=== PATIENT | female | born 1945 | race Caucasian/White ===

== ENCOUNTER 2019-08-15 13:33 | Inpatient (IN) | payer MEDICARE ==
[~2019-08-15] VITALS: Ht 162.6 cm; Wt 110.0 kg
[2019-08-15 15:03] LABS: BASOPHILS # (AUTO) 0.1 X10'3 (0-0.2); BASOPHILS % (AUTO) 0.7 % (0-1); EOSINOPHILS # (AUTO) 0.1 X10'3 (0-0.9); HEMATOCRIT 38.8 % (35.0-45.0); HEMOGLOBIN 12.8 g/dl (12.0-16.0); LYMPHOCYTES # (AUTO) 2.4 X10'3 (1.1-4.8); LYMPHOCYTES % (AUTO) 24.6 % (21-51); MEAN CORPUSCULAR HEMOGLOBIN 29.7 PG (27.0-31.0); MEAN CORPUSCULAR HGB CONC 32.9 g/dL (33.0-36.5); MEAN CORPUSCULAR VOLUME 90.1 FL (78-98); MEAN PLATELET VOLUME 11.7 FL (7.4-10.4); MONOCYTES # (AUTO) 0.6 X10'3 (0-0.9); MONOCYTES % (AUTO) 5.8 % (2-12); NEUTROPHILS # (AUTO) 6.6 X10'3 (1.8-7.7); NEUTROPHILS % (AUTO) 67.9 % (42-75); PLATELET COUNT 240 X10'3 (140-440); RED BLOOD COUNT 4.31 X10'6 (4.20-5.60); RED CELL DISTRIBUTION WIDTH 14.2 % (11.5-14.5); WHITE BLOOD COUNT 9.7 X10'3 (4.5-11.0)
[2019-08-15 15:13] LABS: PARTIAL THROMBOPLASTIN TIME 26 SECONDS (22-32)
[2019-08-15 15:15] LABS: ALANINE AMINOTRANSFERASE 21 U/L (12-78); ALBUMIN 3.4 G/DL (3.4-5.0); ALBUMIN/GLOBULIN RATIO 0.9 (1.1-1.5); ALKALINE PHOSPHATASE 70 IU/L (46-116); ANION GAP 5 (8-16); ASPARTATE AMINO TRANSFERASE 13 U/L (10-37); BILIRUBIN,TOTAL 0.2 MG/DL (0.1-1.0); BLOOD UREA NITROGEN 33 MG/DL (7-18); BUN/CREATININE RATIO 21.7 (6.6-38.0); CALCIUM 8.9 MG/DL (8.5-10.1); CHLORIDE 105 MMOL/L (99-107); CREATININE 1.52 MG/DL (0.40-0.90); GLUCOSE 95 MG/DL (70-104); POTASSIUM 4.6 MMOL/L (3.5-5.1); SODIUM 141 MMOL/L (135-145); TOTAL CARBON DIOXIDE 31.3 MMOL/L (24-32); TOTAL PROTEIN 7.1 G/DL (6.4-8.2); eGFR 34 ML/MIN
[2019-08-15] MEDS ORDERED: diltiazem 5mg/ml 5ml inj. IV ONE (15:20)
[2019-08-15 16:20] LABS: LARGE PLATELETS FEW; PLATELET ESTIMATE NORMAL
[2019-08-15] MEDS ORDERED: ATOR40TA72 PO (16:53)
[2019-08-15] MEDS ORDERED: LISI1TAB29 PO (16:53)
[2019-08-15] MEDS ORDERED: OXYB10TA2 PO (16:53)
[2019-08-15] MEDS ORDERED: BIOT10004 PO (16:53)
[2019-08-15] MEDS ORDERED: mag hydrox/Alum hydrox/simeth 30ml oral suspension PO PRN (18:05)
[2019-08-15] MEDS ORDERED: potassium Cl 20 mEq SR tablet PO PRN ×2 (18:05)
[2019-08-15] MEDS ORDERED: docusate sod 100mg capsule PO PRN (18:05)
[2019-08-15] MEDS ORDERED: aminophylline 250mg/10ml inj. IV PRN (18:05)
[2019-08-15] MEDS ORDERED: potassium CL 10mEq/100ml bag 100 ML IV PRN ×2 (18:05)
[2019-08-15] MEDS ORDERED: metoprolol tartrate 1mg/ml inj IV PRN (18:05)
[2019-08-15] MEDS ORDERED: magnesium Cl slow-release 64mg tablet PO PRN (18:05)
[2019-08-15] MEDS ORDERED: acetaminophen 325mg tablet PO PRN ×2 (18:05)
[2019-08-15] MEDS ORDERED: nitroGLYCERIN 0.4mg SUBLingual tab SL PRN (18:05)
[2019-08-15] MEDS ORDERED: magnesium 4gm in 100ml NS 100 ML IV PRN (18:05)
[2019-08-15] MEDS ORDERED: magnesium 2GM in 50ml NS 50 ML IV PRN (18:05)
[2019-08-15] MEDS ORDERED: morphine 2 MG/ML inj. syringe IV PRN (18:05)
[2019-08-15] MEDS ORDERED: regadenoson 0.4mg/5ml syringe IV PRN (18:05)
[2019-08-15] MEDS ORDERED: ondansetron/PF 4mg/2ml inj IV PRN (18:05)
[2019-08-15] MEDS ORDERED: HYDROcodone/acetaminophen 5mg/325mg tablet PO PRN (18:05)
[2019-08-15 18:49] LABS: D-DIMER 0.27 MG/L FEU (0-0.50)
--- NOTE | 2019-08-15 20:00 | NUR ---
Patient transfered from ER to room PCU 3013. I have received report from Deepali SCHUSTER from ER and had the opportunity to ask questions and assume patient care. Came with all her belongings, walked independently to the bed, and able to reposition to comfort in bed. Will continue to monitor.
[2019-08-15 20:30] VITALS: BP 145/77
[2019-08-15] MEDS: normal saline 1000ml 1,000 ML IV SCH (20:39)
[2019-08-15 22:00] VITALS: BP 128/56
--- NOTE | 2019-08-15 22:00 | NUR ---
Patient has voiced concerns about possible new diagnosis of Chronic kidney disease stage 3, PE, and coronary artery disease. Wanting to talk to the doctor more in the AM shift.
[2019-08-15] MEDS: heparin, porcine 5000 units/ml vial SQ SCH (23:13)
[2019-08-16] VITALS (11 sets, daily range): BP systolic 101–156; BP diastolic 49–65
[2019-08-16 03:42] LABS: BASOPHILS # (AUTO) 0.1 X10'3 (0-0.2); BASOPHILS % (AUTO) 1.3 % (0-1); EOSINOPHILS # (AUTO) 0.1 X10'3 (0-0.9); EOSINOPHILS % (AUTO) 1.7 % (0-6); HEMATOCRIT 34.9 % (35.0-45.0); HEMOGLOBIN 11.6 g/dl (12.0-16.0); LYMPHOCYTES # (AUTO) 2.5 X10'3 (1.1-4.8); LYMPHOCYTES % (AUTO) 35.7 % (21-51); MEAN CORPUSCULAR HEMOGLOBIN 29.8 PG (27.0-31.0); MEAN CORPUSCULAR HGB CONC 33.3 g/dL (33.0-36.5); MEAN CORPUSCULAR VOLUME 89.5 FL (78-98); MEAN PLATELET VOLUME 11.6 FL (7.4-10.4); MONOCYTES # (AUTO) 0.4 X10'3 (0-0.9); MONOCYTES % (AUTO) 5.9 % (2-12); NEUTROPHILS # (AUTO) 3.8 X10'3 (1.8-7.7); NEUTROPHILS % (AUTO) 55.4 % (42-75); PLATELET COUNT 182 X10'3 (140-440); RED CELL DISTRIBUTION WIDTH 13.7 % (11.5-14.5); WHITE BLOOD COUNT 6.9 X10'3 (4.5-11.0)
[2019-08-16 04:01] LABS: ALANINE AMINOTRANSFERASE 17 U/L (12-78); ALBUMIN 3.1 G/DL (3.4-5.0); ALBUMIN/GLOBULIN RATIO 0.9 (1.1-1.5); ALKALINE PHOSPHATASE 64 IU/L (46-116); ANION GAP 9 (8-16); ASPARTATE AMINO TRANSFERASE 11 U/L (10-37); BILIRUBIN,TOTAL 0.3 MG/DL (0.1-1.0); BLOOD UREA NITROGEN 29 MG/DL (7-18); BUN/CREATININE RATIO 25.2 (6.6-38.0); CALCIUM 8.2 MG/DL (8.5-10.1); CHLORIDE 108 MMOL/L (99-107); CHOLESTEROL 143 MG/DL (0-200); CREATININE 1.15 MG/DL (0.40-0.90); GLUCOSE 96 MG/DL (70-104); HDL CHOLESTEROL 48 MG/DL (35-60); LDL CHOLESTEROL 79 MG/DL (50-100); MAGNESIUM 1.6 MG/DL (1.5-2.4); POTASSIUM 4.2 MMOL/L (3.5-5.1); SODIUM 144 MMOL/L (135-145); TOTAL CARBON DIOXIDE 27.3 MMOL/L (24-32); TOTAL PROTEIN 6.4 G/DL (6.4-8.2); TRIGLYCERIDES 129 MG/DL (20-135); eGFR 46 ML/MIN
[2019-08-16] MEDS: normal saline 1000ml 1,000 ML IV SCH ×2 (04:01→14:01)
--- NOTE | 2019-08-16 06:43 | NUR ---
Problems reprioritized. Patient report given, questions answered & plan of care reviewed with Nicolás SCHUSTER.
--- NOTE | 2019-08-16 06:43 | NUR ---
Patient in room PCU 3013. I have received report from LANDEN Gutierrez and had the opportunity to ask questions and assume patient care.
[2019-08-16] MEDS: K and/or MAG REPLACEMENT MC SCH (08:00)
[2019-08-16] MEDS: heparin, porcine 5000 units/ml vial SQ SCH ×2 (08:02→20:06)
[2019-08-16] MEDS: pantoprazole 40mg Tablet.DR PO SCH (08:03)
[2019-08-16] MEDS: lisinopril 20mg tablet PO SCH (08:03)
[2019-08-16] MEDS: atorvastatin 20mg tablet PO SCH (08:04)
[2019-08-16] MEDS ORDERED: furosemide 20 MG/2 ML vial IV ONE (14:10)
--- NOTE | 2019-08-16 15:12 | NUR ---
RM [id number] Cynthia Deng: Has voided twice since lasix, she denies any symptoms associated with CHF. Dr Stevens thinks she is fine to go home. Did you want a bladder scan on her or did I hear that wrong? LANDEN Monzon Ext [phone]
--- NOTE | 2019-08-16 16:43 | NUR ---
PAGER ID: [phone] MESSAGE: [id number] Cynthia Deng: Was she possibly getting discharged today? LANDEN Monzon Ext [phone]
--- NOTE | 2019-08-16 18:00 | NUR ---
Patient in room PCU 3013. I have received report from Nicolás SCHUSTER and had the opportunity to ask questions and assume patient care.
--- NOTE | 2019-08-16 18:09 | NUR ---
Problems reprioritized. Patient report given, questions answered & plan of care reviewed with LANDEN Gutierrez.
[2019-08-16] MEDS ORDERED: furosemide 20 MG/2 ML vial IV SCH (20:00)
[2019-08-16] MEDS: nystatin 15 GM powder TP SCH (20:06)
[2019-08-17 02:00] VITALS: BP 113/55
--- NOTE | 2019-08-17 04:00 | NUR ---
END NOC NOTE Patient has slept well tonight, eager to go home in the AM. One concern she had was having all the information for her PCP and anode worker when she leaves the hospital, I assured her she will have all the information will go with her at discharge. Nystatin powder was added tonight for the reddened areas under breasts. Will continue to monitor.
[2019-08-17 06:00] VITALS: BP 132/60
--- NOTE | 2019-08-17 06:58 | NUR ---
Patient in room PCU 3013. I have received report from LANDEN RAMSAY and had the opportunity to ask questions and assume patient care.
--- NOTE | 2019-08-17 07:01 | NUR ---
Problems reprioritized. Patient report given, questions answered & plan of care reviewed with Bridgette SCHUSTER.
[2019-08-17 07:16] LABS: BASOPHILS % (AUTO) 0.6 % (0-1); EOSINOPHILS # (AUTO) 0.1 X10'3 (0-0.9); EOSINOPHILS % (AUTO) 1.8 % (0-6); HEMATOCRIT 35.3 % (35.0-45.0); HEMOGLOBIN 11.8 g/dl (12.0-16.0); LYMPHOCYTES # (AUTO) 1.8 X10'3 (1.1-4.8); LYMPHOCYTES % (AUTO) 33.4 % (21-51); MEAN CORPUSCULAR HEMOGLOBIN 29.6 PG (27.0-31.0); MEAN CORPUSCULAR HGB CONC 33.3 g/dL (33.0-36.5); MEAN CORPUSCULAR VOLUME 88.9 FL (78-98); MEAN PLATELET VOLUME 11.4 FL (7.4-10.4); MONOCYTES # (AUTO) 0.3 X10'3 (0-0.9); MONOCYTES % (AUTO) 5.9 % (2-12); NEUTROPHILS # (AUTO) 3.2 X10'3 (1.8-7.7); NEUTROPHILS % (AUTO) 58.3 % (42-75); PLATELET COUNT 185 X10'3 (140-440); RED BLOOD COUNT 3.98 X10'6 (4.20-5.60); RED CELL DISTRIBUTION WIDTH 13.8 % (11.5-14.5); WHITE BLOOD COUNT 5.4 X10'3 (4.5-11.0)
[2019-08-17] MEDS: nystatin 15 GM powder TP SCH (07:24)
[2019-08-17] MEDS: lisinopril 20mg tablet PO SCH (07:26)
[2019-08-17] MEDS: pantoprazole 40mg Tablet.DR PO SCH (07:26)
[2019-08-17] MEDS: atorvastatin 20mg tablet PO SCH (07:26)
[2019-08-17] MEDS: heparin, porcine 5000 units/ml vial SQ SCH (07:27)
[2019-08-17] MEDS: K and/or MAG REPLACEMENT MC SCH (08:00)
[2019-08-17 08:46] LABS: ALBUMIN 3.1 G/DL (3.4-5.0); ANION GAP 8 (8-16); BLOOD UREA NITROGEN 21 MG/DL (7-18); BUN/CREATININE RATIO 18.3 (6.6-38.0); CALCIUM 8.8 MG/DL (8.5-10.1); CHLORIDE 106 MMOL/L (99-107); CREATININE 1.15 MG/DL (0.40-0.90); GLUCOSE 104 MG/DL (70-104); MAGNESIUM 1.9 MG/DL (1.5-2.4); POTASSIUM 4.3 MMOL/L (3.5-5.1); SODIUM 143 MMOL/L (135-145); TOTAL CARBON DIOXIDE 29.2 MMOL/L (24-32); eGFR 46 ML/MIN
[2019-08-17] MEDS ORDERED: FURO-150 PO (09:18)
[2019-08-17] MEDS ORDERED: LISI-600 PO (09:18)
[2019-08-17 10:49] LABS: CLARITY,URINE CLEAR (Clear); COLOR,URINE YELLOW (Yellow); GLUCOSE, URINE NEGATIVE (Neg); KETONES,URINE NEGATIVE (Neg); LEUKOCYTE ESTERASE ,URINE SMALL (Neg); NITRITES, URINE NEGATIVE (Neg); OCCULT BLOOD,URINE NEGATIVE (Neg); PROTEIN,URINE NEGATIVE (Neg); UROBILINOGEN,URINE 0.2 E.U/dL (0.2-1.0)
[2019-08-17 10:54] LABS: UA COLLECTION TYPE VOIDED
[2019-08-17 11:00] VITALS: BP 134/62
[2019-08-17 11:11] LABS: SQUAMOUS EPITHELIAL CELL,UR FEW /LPF (FEW)
[2019-08-17 11:12] LABS: BACTERIA,URINE 1+ /HPF (Neg); RBC,URINE 0-2 /HPF (0-2); WBC CLUMPS,URINE FEW /HPF (NEGATIVE)
[2019-08-17] MEDS ORDERED: CEFD300C3 PO (11:49)
--- NOTE | 2019-08-17 12:36 | NUR ---
[facility] CALLED [facility] PER PT REQUEST
[2019-08-17 12:48] LABS: LARGE PLATELETS FEW; PLATELET ESTIMATE NORMAL
--- NOTE | 2019-08-17 13:00 | NUR ---
PT DISCHARGED IN STABLE CONDITION. ALL BELONGINGS SENT HOME WITH PT. ROWENA AND GABY ARDON. DISCHARGE INSTRUCTIONS GIVEN TO PT. PT TAKEN TO PRIVATE VEHICLE IN WHEELCHAIR BY LANDEN. Addendum: 08/17/19 at 1429 by Bridgette Armstrong RN PT HAS APPT WITH [facility] 08/18/19 FOR FOLLOW UP
== END 2019-08-17 13:00 | disposition home or self-care (01) | DRG 291 ==
LOC: ER 13:34 → ED HOLD 18:08 → PCU 3S 20:20
PROVIDERS: ADMIT Internal Medicine; ATTEND Hospitalist
PROC: 4A02XM4 Measurement of Cardiac Total Activity, External Approach (ICD-10-PCS; principal; 2019-08-16)
PROC: 3E033HZ Introduction of Radioactive Substance into Peripheral Vein, Percutaneous Approach (ICD-10-PCS; 2019-08-16)
DX: I13.0 Hypertensive heart and chronic kidney disease with heart failure and stage 1 through stage 4 chronic kidney disease, or unspecified chronic kidney disease (principal); I50.31 Acute diastolic (congestive) heart failure; N17.9 Acute kidney failure, unspecified; N39.0 Urinary tract infection, site not specified; N18.3 Chronic kidney disease, stage 3 (moderate); G47.30 Sleep apnea, unspecified; R00.0 Tachycardia, unspecified; E78.5 Hyperlipidemia, unspecified; E78.00 Pure hypercholesterolemia, unspecified; Z87.891 Personal history of nicotine dependence
CPT/HCPCS: 36415; 71045; 78452; 80048; 80053; 80061; 81001; 83735; 83880; 84443; 84484; 85025; 85379; 85610; 85730; 87081; 87088; 93005; 93017; 96374; 97116; 97161; 97530; 99285; A9500; G0378; J0280; J1644; J1940; J2785; J3490; J7030